=== PATIENT | male | born 1975 | race Caucasian/White ===

== ENCOUNTER → 2016-12-04 | Day surgery (SDC) | payer OTHER ==
[~2016-12-04] VITALS: Ht 188 cm; Wt 94.3 kg
[2016-12-04] VITALS (8 sets, daily range): BP systolic 121–194; BP diastolic 83–119
[~2016-12-04] MED LIST: AMBIEN 10MG TAB10 MG PO; ATENOLOL50 MG PO; GABAPENTIN 600600 MG PO; HCTZ/LISINOPRIL1 TA3 PO; NORCO 325 MG-51 TAB PO; TRAMADOL 50MG T50 M1 PO
[2016-12-04 09:31] LABS: AMPHETAMINES/METAMPHETAMINES NEGATIVE ng/mL (<1000)
--- NOTE | 2016-12-04 10:14 | Procedure Note ---
Procedure detail Date of procedure: 12/04/16 Anesthesiologist: Jesus Stringer MD Complications: None Pre-procedure diagnosis: Complex regional pain syndrome type I both feet with tarsal tunnel syndrome Post-procedure diagnosis: Same Indications for procedure: This patient is a pleasant 41-year-old white male who we're treating for complex regional pain syndrome type I of both feet with tarsal tunnel syndrome. He has had previous surgery on his RIGHT foot. He has failed all previous conservative therapy including physical therapy, oral narcotics and previous surgery as well as injections. We will see if he will get benefit from intrathecal therapy. We will do intrathecal pump trial today. He is currently on [place] 5 mg 3 times a day. He stopped this 24 hours ago. Procedure detail: Informed consent was obtained and the risk and benefits of the procedure was explained to the patient. The patient was taken to the procedure room. He was placed prone on the procedure table. He was prepped and draped in sterile fashion. C-arm fluoroscopy was used to view the lumbar spine. The skin and subcutaneous tissues were anesthetized using lidocaine. A 17-gauge spinal needle was inserted and advanced into the L4-L5 interspace until clear CSF was obtained. After this intrathecal catheter was inserted very easily to the L1 vertebral body. The needle was withdrawn. We were able to freely withdraw clear CSF through the catheter. The catheter was secured in place and the patient was brought back to the recovery room in stable condition. He tolerated the procedure well with no complications. After 1 set of vitals we bolused the patient with fentanyl 50 g over 5 minutes. Patient's functionality and pain score were assessed after 30 minutes. Patient had 90-100 percent relief in his pain symptoms and he was much more functional. Patient wants to proceed with permanent placement. We will have him see Dr. leora little for evaluation of permanent placement. We will also follow up on his neuropsychological evaluation. We will plan on permanent placement with intrathecal Dilaudid 1 mg per mL to start at 0.1 mg per day. Plan and disposition: We will discharge him home. The catheter was pulled without complication. The patient can restart his pain medication tomorrow. We will plan on permanent placement with intrathecal Dilaudid 1 mg per mL to start at 0.1 mg per day. Catheter tip we'll be at L1. at 2400
== END ==
LOC: PM 11-09 09:15 → LAB 08:19 → PM 08:45
PROVIDERS: Anesthesiology
PROC: 3E0R3BZ Introduction of Anesthetic Agent into Spinal Canal, Percutaneous Approach (ICD-10-PCS; principal; 2016-12-04)
DX: G90.523 Complex regional pain syndrome I of lower limb, bilateral (principal); G57.53 Tarsal tunnel syndrome, bilateral lower limbs

== ENCOUNTER 2016-12-18 19:35 | Emergency (ER) | payer OTHER ==
[~2016-12-18] VITALS: Ht 188 cm; Wt 93.0 kg
--- NOTE | 2016-12-18 20:36 | Emergency Room Report ---
History of Present Illness Time Seen by 2002 Presenting Problem in Triage Pt arrived:Walked Presenting Problem:trial 2 wks ago for pain pump but still with pain .received blood patch on last WED. BUT HAS DIZZINESS AND PRESSURE AT BASE OF SKULL AND FRONT OF HEAD AND LOWER BACK. 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 Y Clinical Suspician of Infection? Y Mental Status: 1 - Regular (Normal Baseline) Sepsis Risk:Low Sepsis Risk Have you (or family members/close friends) recently traveled outside the [place]? N If Yes, where/when: Have you had exposure to infectious disease within the past month? N TB? Other? Specify: Source patient, RN notes reviewed, family, old records Exam Limitations no limitations ALLERGIES Coded Allergies: Penicillins (I-RASH 06/15/16) Home Medications Active Scripts HYDROCODONE/ACETAMINOPHEN ([place] 5-325 Tablet) 1 TAB PO TID #90 TAB Prov: 10/12/16 Reported Medications ATENOLOL (Atenolol 50MG) 50 MG PO DAILY Zolpidem Tartrate (Ambien 10MG) 10 MG PO QHS Gabapentin (Gabapentin 600MG) 900 MG PO Q8 TRAMADOL HCL (Tramadol) 50 MG PO 5X A DAY History Medical History General CAD? No Angina: No CO: No Hypertension? Yes Hyperlipidemia? No CHF? No DVT? No PE? No COPD? No Asthma? No Anemia? No GERD? No Gastric ulcers? No GI Bleed? No Hernia? No Thyroid Problems? No Hypothyroidism? No CVA? No Seizures? No Diabetes? No Renal Insuffiency? No End Stage Renal Disease? No UTI? No Stones? No BPH? No GB Disease: No Nephritic Syndrome? No Asplenia? No Hepatitis? No Sickle Cell Disease? No Arthritis? No Migraines? No Cataracts? No Glaucoma? No MRSA? No HIV? No TB? No Anxiety? No Depression? No Cancer? No More? No Immunization Hx DT/Tetanus Unknown Surgical Hx Previous Surgery?Y APPY TARSAL TUNNEL Social History Smoking Hx Smoker: Former Smoker Tobacco: No Type Snuff Are you/the child exposed to second-hand smoke: Yes Alcohol Alcohol: No Drugs none Review of Systems All Other Systems Reviewed and Negative Constitutional denies chills, denies fever Eyes denies drainage ENT denies: ear pain, epistaxis, throat pain. Respiratory denies cough Cardiovascular denies palpitations Gastrointestinal see HPI, nausea, denies vomiting Genitourinary denies: dysuria, frequency, hesitancy, hematuria. Musculoskeletal denies back pain, denies joint pain, denies joint swelling Skin denies rash Psychiatric/Neurological denies headache, denies seizure Physical Exam Vital Signs Vital Signs Date Time Temp Pulse Resp B/P Pulse O2 O2 Flow FiO2 Ox Delivery Rate 12/18 2109 98.4 62 22 134/87 97 12/18 1952 97.6 73 16 154/97 97 - WBC >12,000 or <4,000 or 10% bands? 2 or more SIRS Criteria Met? B/P:134/87 MAP:116 Creatinine >2.0? UA output<0.5ml/kg/hr for 2 hrs? Platelet count >100,000? Lactate >2.0mmol/1? INR >1.2 or PTT > than 60 sec? Evidence of Organ Dysfunction? Provider documented clinical suspician of infection? Y Sepsis Criteria Count: 1 Sepsis Risk: Low Sepsis Risk General Appearance no apparent distress Eye Exam - bilateral eye PERRL, bilateral eye EOMI Ear, Nose, Throat normal ENT inspection Neck supple Respiratory Status No: respiratory distress. Lung Sounds bilateral: lungs clear. Cardiovascular regular rate/rhythm Peripheral Pulses Pulses normal Yes Gastrointestinal soft Extremities normal inspection Strength 4 Upper Ext (L), 4 Upper Ext (R), 4 Lower Ext (L), 4 Lower Ext (R) Neurologic alert, dust puller II-XII nml as tested, no motor/sensory deficits Glascow Coma Scale Glascow Coma Scale Response Value EYE response: 4 Spontaneously 4 MOTOR response: 6 OBEYS 6 VERBAL response: 5 Oriented & Converses 5 Total 15 Reflexes Reflexes normal No Mental status normal mood/affect Skin intact Medical Decision Making LABS/Meds/Orders Pt receiving controlled substance in ED? No Results/Orders Laboratory Tests 12/18/162057: Urine Color YELLOW, Urine Appearance CLEAR, Urine pH 7.0, Ur Specific [place] <= 1.005, Urine Protein NEGATIVE, Urine Ketones NEGATIVE, Urine Blood NEGATIVE, Urine Nitrate NEGATIVE, Urine Bilirubin NEGATIVE, Urine Urobilinogen 0.2, Ur Leukocyte Esterase NEGATIVE, Urine RBC OCC, Urine WBC NONE, Ur Squamous Epith Cells NONE, Urine Bacteria TRACE, Urine Glucose NEGATIVE 12/18/162052: Sodium 140, Potassium 3.8, Chloride 102, Carbon Dioxide 30, BUN 10, Creatinine 0.8, Estimated Creat Clear 158, Estimated GFR (MDRD) 106, Glucose 88, Calcium 8.8, Total Bilirubin 0.6, AST 18, ALT 29, Alkaline Phosphatase 77, Total Protein 7.8, Albumin 4.2, Globulin 3.6 H, Albumin/Globulin Ratio 1.2, WBC 7.9, RBC 4.96 , Hgb 15.0, Hct 43.9, MCV 88.5, RDW 13.3, Plt Count 202, MPV 8.2, Gran % 59.2, Gran # 4.7, Lymphocytes % 29.0, Monocytes % 6.6, Eosinophils % 4.3, Basophils % 0.9, Lymphocytes # 2.3, Monocytes # 0.5, Eosinophils # 0.3, Basophils # 0.1, PUBS MCHC 34.1, ESR Pending, MCH 30.2 Current Medication Orders Sig/Rebeca Start time Last Medication Dose Route Stop Time Status Admin Sodium Chloride 10 ML PRN PRN 12/18 2129 AC IV 12/19 2126 Sodium Chloride 1,000 ML .Q1H1M 12/18 2044 AC 12/18 IV 12/18 Sodium Chloride 10 ML PRN PRN 12/18 2044 AC IV 12/19 2036 Sodium Chloride 1,000 ML .STK-MED ONE 12/18 2037 DC IV Orders Procedure Date/time Status IV SALINE LOCK 12/18 2126 Active URINALYSIS/COMPLETE 12/19 2051 Complete CULTURE, BLOOD 12/18 2036 Active SED RATE 12/18 2036 Active C-REACTIVE PROTEIN 12/18 2036 Complete COMPLETE METABOLIC PANEL 12/18 2036 Complete CBC WITH AUTO DIFF 12/18 2036 Active Departure Departure Time of Disposition 2132 Disposition DC Home or Self Care(routine) Clinical Impression Primary Impression: Headache, spinal, postoperative Condition STABLE Referrals GURWINDER AGUILAR (Family) discussed with dr brasher and shiva dalal anesthesia Patient Instructions DI for Epidural Blood Patch Additional Instructions see dr brasher for follow up Discharge Counseling Counseled pt/family regarding diagnosis, test results, follow up needs ED Critical Care Critical Care No at [id number]
[2016-12-18 20:59] LABS: LYMPH # 2.3 K/mm3 (0.7-4.5)
[2016-12-18 21:01] LABS: URINE BILIRUBIN - DIPSTICK NEGATIVE (NEG); URINE BLOOD NEGATIVE (NEG)
[2016-12-18] MEDS ORDERED: ZANAFLEX4 M3 PO (22:00)
[2016-12-18 22:33] VITALS: BP 148/94
--- NOTE | 2016-12-19 06:59 | RADIOLOGY REPORT PS360 ---
CT HEAD W/O CONTRAST HISTORY: Severe headache HEADACHE ORDERING PHYSICIAN: Randell Antonio MD PATIENT AGE: 41 years COMPARISON: None TECHNIQUE: Axial images obtained without contrast. Brain and bone windows reviewed. FINDINGS: No midline shift, mass effect, or intracranial hemorrhage is evident. There is a CSF fluid collection in the left middle cranial fossa within the temporal area measuring 5.3 x 4.6 cm AP and transverse consistent with an arachnoid cyst. No mass effect. Air-fluid levels present in the sphenoid sinus and there is ethmoid mucosal thickening. IMPRESSION: 1. No acute finding. 2. 5 cm left middle cranial fossa arachnoid cyst which may be better evaluated with MRI with contrast if clinically warranted. 3. Sinus disease
== END 2016-12-18 22:39 | disposition home or self-care (01) ==
LOC: ER 19:35
PROVIDERS: Emergency Medicine
DX: G97.1 Other reaction to spinal and lumbar puncture (principal); Z87.891 Personal history of nicotine dependence; Z79.891 Long term (current) use of opiate analgesic; Z79.899 Other long term (current) drug therapy; Z88.0 Allergy status to penicillin

== ENCOUNTER → 2017-01-04 | Outpatient (CLI) | payer OTHER ==
[~2017-01-04] MED LIST changes: +ZANAFLEX4 M3 PO
[2017-01-04 09:11] LABS: HEMOGLOBIN 15.5 g/dL (14.1-18.0); LYMPH # 2.9 K/mm3 (0.7-4.5); LYMPH % 37.1 % (10-50)
[2017-01-04 10:31] LABS: BUN 12 mg/dL (7-18); GFR (ESTIMATED) 106 ML/MIN (>60)
== END ==
LOC: LAB 08:55
PROVIDERS: Anesthesiology
DX: M51.36 Other intervertebral disc degeneration, lumbar region (principal); Z01.812 Encounter for preprocedural laboratory examination

== ENCOUNTER 2017-01-06 09:48 | Day surgery (SDC) | payer OTHER ==
[~2017-01-06] VITALS: Ht 188 cm; Wt 93.0 kg
--- NOTE | 2017-01-06 15:06 | Operative Note ---
Surgeon/Diagnoses Surgeon/Draw Furnace Tender(s) Date of procedure: 01/06/17 Surgeon: Jesus Stringer MD Diagnoses Pre-op diagnosis: Low back pain with radiculopathy and CRPS type I BLE, Tarsal tunnel syndrome Post-op diagnosis Same Procedure Procedure Procedure: Implantation of intrathecal pain pump catheter with tunneling for permanent intrathecal pain pump placement Indications: GHISLAINE DEL RIO is a 41 year-old Male with a history of CRPS type 1 after after failed tarsal tunnel surgery. Patient has failed conservative measures such as physical therapy and oral narcotics. patient had a successful pain pump trial and recieved complete relief from his symptoms. He had 90-100 percent relief of his pain symptoms. He was also much more functional. He also has some low back pain with radicular symptoms. He presents for permanent pain pump placement today. I have explained the risk and benefits and answered all questions. Findings: Not applicable Procedure Description: Informed consent was obtained and the risk and benefits of the procedure was explained to the patient. The patient received vancomycin preoperatively. The patient was taken to the Operating Room. Patient was placed prone on the procedure table. He was prepped and draped in sterile fashion. C-arm fluoroscopy was used to view the lumbar spine. The skin and subcutaneous tissues tissues were anesthetized using lidocaine. I made the incision adjacent to the L4-L5 and L5-S1 interspace. I dissected down to lumbar paraspinous fascia. I inserted a 14 -gauge spinal needle and advanced into the L4-L5 interspace until clear CSF was obtained. After this intrathecal catheter was inserted very easily to the T12 vertebral body. The stylet of the catheter and the needle was withdrawn. The catheter was secured to the lumbar paraspinous fascia with an anchoring device and 2-0 Prolene. I prepared the pump with 20 mL's of normal saline while Dr. Burgess prepared the pump pocket. I tunneled the catheter from the back to the pump pocket and attached the catheter to the pump. The pump was placed in the pump pocket and we were able to withdraw clear CSF through the side port. Both incisions were then closed with 2 over followed by 4-0 nylon. Patient was placed in the abdominal binder taken to recovery in stable condition. The pump was programmed and normal saline was running at 0.1 mL per day. EBL (ml): 5 Anesthesia: LMAC Implants: Permanent pain pump reservoir and catheter Complications: None Disposition Disposition: We will follow up with the patient next week. We will refill the pump with 20 mL of Dilaudid 1 mg per mL and program the pump to start at 0.1 mg per day of intrathecal Dilaudid. We will see the patient back in 2 weeks to make adjustments and remove stitches. If the patient has any problems or questions he is to call me in the pain clinic. The patient can take his [place] for postoperative pain every 4-6 hours. We will write him a new prescription today. Edwin and urine drug screen are all appropriate. at [id number]
--- NOTE | 2017-01-06 15:13 | Operative Note ---
Surgeon/Diagnoses Surgeon/Natural Sciences Professor(s) Date of procedure: 01/06/17 Surgeon: Rosales Aden MD Diagnoses Pre-op diagnosis: CRPS type 1 bilateral feet, Tarsal tunnel syndrome Post-op diagnosis Same Procedure Procedure Procedure: implantation of intrathecal pain pump battery Indications: Tarsal tunnel syndrome, CRPS type 1 day feet Findings: not applicable Procedure Description: Patient was placed prone on the operating table and her back and flank regions were prepped and draped in sterile fashion. The paraspinal incision was made with Dr. Stringer which was placed in intrathecal catheter into the intrathecal space to the area desired by Dr. Stringer.. Local anesthesia was obtained was a high percent Marcaine with epinephrine as well as IV sedation B anesthesia. A LEFT flank incision was then made under which made a pocket for placement of the reservoir. Catheter was passed from the paraspinal incision of the pocket incision wasn't tunneling device. Catheter fixed to just place in the pocket. CSF was aspirated with generator patency of the system. Subcutaneous tissues. Sutures of 2-0 Vicryl. Skin was closed from stitch of 4-0 nylon. The pockets were irrigated with bacitracin solution prior to placement of the implant. Antibiotic ointment sterile dressing and a binder applied. The patient should well to come solution. Upon recovery the patient was discharged home with follow -up in 2 weeks for suture. Wound care instructions given the patient prior to discharge. The patient and our procedure well. EBL (ml): 5 Anesthesia: LMAC Complications: None Disposition Disposition: Upon completion the patient will be discharged home to follow-up in 2 weeks for suture removal. Wound care and instruction given to the patient prior to discharge. We'll be contacting redness pain and drainage fever chills or any concerns whatsoever. The patient tolerated procedure well at 8559
--- NOTE | 2017-01-06 16:14 | RADIOLOGY REPORT PS360 ---
FLUOROSCOPY CHARGE(<1 HR) CLINICAL INDICATION: INTRATHECAL PAIN PUMP PLACEMENT ORDERING PHYSICIAN: Jesus Stringer MD PATIENT AGE: 41 years Fluoroscopy time: 27 seconds COMPARISON: None FINDINGS: There is an intrathecal catheter present. The tip is at the T12 level. IMPRESSION: Fluoroscopy utilized for intrathecal catheter placement
[2017-01-06 17:13] VITALS: BP 140/85
== END 2017-01-06 17:00 | disposition home or self-care (01) ==
LOC: SDC 09:48
PROVIDERS: Anesthesiology
PROC: 0JH70VZ Insertion of Infusion Pump into Back Subcutaneous Tissue and Fascia, Open Approach (ICD-10-PCS; 2017-01-06)
PROC: 00HU03Z Insertion of Infusion Device into Spinal Canal, Open Approach (ICD-10-PCS; principal; 2017-01-06 12:00)
DX: G90.523 Complex regional pain syndrome I of lower limb, bilateral (principal); G57.50 Tarsal tunnel syndrome, unspecified lower limb
CPT/HCPCS: C1755; C1772; J3370

== ENCOUNTER → 2017-01-12 | Day surgery (SDC) | payer OTHER ==
[~2017-01-12] VITALS: Ht 188 cm; Wt 93.0 kg
[2017-01-12 14:47] VITALS: BP 133/86
[2017-01-12 15:09] VITALS: BP 160/102
[2017-01-12 15:10] VITALS: BP 158/107
--- NOTE | 2017-01-12 15:21 | Procedure Note ---
Procedure detail Date of procedure: 01/12/17 Anesthesiologist: Benji Cox Complications: None Pre-procedure diagnosis: RIGHT lower leg tarsal tunnel syndrome. Post-procedure diagnosis: Same. Indications for procedure: Very pleasant 41-year-old white male we have been treating for quite some time for chronic RIGHT leg pain secondary to tarsal tunnel syndrome. Patient's had multiple surgeries in the RIGHT foot. Patient continued having excessive pain following surgeries. We treated him medically for quite some time. He recently had intrathecal pain pump implantation. He presents to the procedure clinic today for his initial fill of hydromorphone 1 mg/mL. We will start the pump at 0.1 mg per day. He'll return to see us in 7-10 days for suture removal and pump adjustment. Procedure detail: Details of the procedure and the patient. The patient taken to the procedure room and placed in the prone position on fluoroscopy table. The area over the pump was cleansed using chlorhexidine as a cleansing solution. The pump was accessed with ease using fluoroscopy guidance and a 20-gauge needle from refill kit. 20 mL of normal saline was withdrawn from the pump and discarded. The pump was infiltrated 20 mL of hydromorphone 1 mg/ml. The pump was interrogated and the rate was set at 0.1 mg per day. Plan and disposition: Patient tolerated procedure without difficulty. There were no complications. He' ll return to see us in 7-10 days for suture removal and pump adjustment. at 1520
[2017-01-12 15:39] VITALS: BP 135/93
== END ==
LOC: PM 14:14
DX: G57.51 Tarsal tunnel syndrome, right lower limb (principal)

== ENCOUNTER 2017-01-16 22:11 | Outpatient (CLI) | payer OTHER ==
[2017-01-16 22:34] VITALS: BP 154/92
[2017-01-16] MEDS ORDERED: FLOMAX 0.4MG C0.4 MG PO (22:40)
[2017-01-19] MEDS ORDERED: DILAUDID2 MG IT (09:02)
== END 2017-01-16 23:03 | disposition home or self-care (01) ==
LOC: OUTP 22:11
DX: R33.9 Retention of urine, unspecified (principal)
CPT/HCPCS: G0463

== ENCOUNTER 2017-03-26 10:53 | Day surgery (SDC) | payer OTHER ==
[~2017-03-26] VITALS: Ht 188 cm; Wt 102.1 kg
[~2017-03-26 10:53] MED LIST changes: +DILAUDID2 MG IT; +FLOMAX 0.4MG C0.4 MG PO
[2017-03-26 11:10] VITALS: BP 123/72
[2017-03-26 12:02] VITALS: BP 123/72; BP 137/89
--- NOTE | 2017-03-26 12:12 | Procedure Note ---
Procedure detail Date of procedure: 03/26/17 Anesthesiologist: Benji Cox Complications: None Pre-procedure diagnosis: Degenerative disc disease lumbar spine multiple levels. Lumbar postlaminectomy syndrome. Post-procedure diagnosis: Same. Indications for procedure: +89y male returns our procedural clinic today for intrathecal pain pump refill. He's doing very well with his current settings. His pump contains Dilaudid 1 mg/ mL. We will increase his concentration today to 2 mg/mL. His current rate is 0.13 mg per day. Procedure detail: Details of the procedure works when to the patient per the patient taken to the procedure room and placed in sitting position. The area over the pump was cleansed using chlorhexidine as cleansing solution. The pump was accessed with ease using a 20-gauge needle from the refill kit. 7.5 mL of solution was withdrawn and discarded appropriate. The pump was then filled with 20 mL of hydromorphone 2 mg/mL. The pump was interrogated. The rate was continued at 0.13 mg per day. Patient tolerated the procedure without difficulty. There are no complications. Objective: Patient's awake alert oriented 3. In acute distress. Flexion states lumbar spine somewhat guarded secondary to pain. Deep tendon reflexes upper lower extremity is normal. Motor strength upper lower extremities normal. There is no gross sensory deficit. Gait is normal. Plan and disposition: Patient was evaluated 10 minutes post procedure. He's doing very well. He'll return to see us his next refill date. at 1211
[2017-03-26 12:29] VITALS: BP 118/83
[2017-03-29] MEDS ORDERED: ZANAFLEX4 MG NG (09:39)
== END 2017-03-26 12:30 | disposition home or self-care (01) ==
LOC: PM 10:53
DX: M51.36 Other intervertebral disc degeneration, lumbar region (principal); M96.1 Postlaminectomy syndrome, not elsewhere classified